=== PATIENT | female | born 1975 | race Caucasian/White ===

== ENCOUNTER 2016-06-05 13:09 | Emergency (ER) | payer OTHER ==
[2016-06-05 13:09] VITALS: BMI 30.1
[2016-06-05 13:16] VITALS: RESP 18; TEMP 97.9
[2016-06-05] MEDS ORDERED: DiphenhydrAMINE 50 mg/ml Inj IM STA (13:38)
--- NOTE | 2016-06-05 13:45 | C.PDOC ---
History Of Present Illness <Eunice Ndiaye - Last Filed: 06/05/16 13:48> <Chacha Palm - Last Filed: 06/05/16 14:23> 41 year old female presents with complaint of 3 days of rash on her bilateral legs. Patient states that she used a new peppermint body wash on Saturday. On Saturday she started to feel itching on her lower extremities by her lateral hips. There was a papular and erythematous patch of skin that started to spread down her bilateral legs. The patient states that she applied chamomile cream to the area but it has still been spreading. She denies bleeding, drainage, and swelling of skin. Patient denies eating new food, using new laundry detergent, recent exposure to wooded area, bug bites, fever, chills, shortness of breath, difficulty breathing, palpitations, chest pain, nausea, vomiting, and diarrhea. (SenthilMinaEunice) History Per: Patient History/Exam Limitations: no limitations Onset/Duration Of Symptoms: Days Current Symptoms Are (Timing): Worse Location Of Injury: Right: Thigh, Left: Thigh, Anterior: Thigh, Posterior: Thigh Quality Of Symptoms: Itching Severity: Moderate Recent travel outside of the [place]: No <Eunice Ndiaye - Last Filed: 06/05/16 13:48> <NéstorChacha - Last Filed: 06/05/16 14:23> Time Seen by Provider: 06/05/16 13:45 Chief Complaint (Nursing): Abnormal Skin Integrity Past Medical History Family History: States: Unknown Family Hx - Social History Hx Tobacco Use: No Hx Alcohol Use: Yes Hx Substance Use: No - Immunization History Hx Tetanus Toxoid Vaccination: No Hx Influenza Vaccination: No Hx Pneumococcal Vaccination: No <Eunice Ndiaye - Last Filed: 06/05/16 13:48> Vital Signs: Last Vital Signs Temp 97.9 F 06/05/16 13:12 Pulse 63 06/05/16 13:12 Resp 18 06/05/16 13:12 BP 122/85 06/05/16 13:12 Pulse Ox 100 06/05/16 13:54 Review Of Systems Except As Marked, All Systems Reviewed And Found Negative. Cardiovascular: Negative for: Chest Pain, Palpitations Respiratory: Negative for: Cough, Shortness of Breath Skin: Positive for: Rash (bilateral thighs ) Neurological: Negative for: Weakness, Numbness <Eunice Ndiaye - Last Filed: 06/05/16 13:48> Physical Exam - Physical Exam Appears: Well, Non-toxic, No Acute Distress Skin: Warm, Dry, Rash (papular rash bilateral anterior and posterior thighs) Head: Atraumatic, Normacephalic Eye(s): bilateral: Normal Inspection, EOMI Nose: Normal Oral Mucosa: Moist Tongue: Normal Appearing, No Swelling Lips: Normal Appearing, No Swelling Neck: Normal, Normal ROM, Trachea Midline Cardiovascular: Rhythm Regular, No Rhythm Irregular Respiratory: Normal Breath Sounds, No Decreased Breath Sounds, No Accessory Muscle Use, No Stridor, No Wheezing Gastrointestinal/Abdominal: Normal Exam Extremity: Normal ROM Neurological/Psych: Oriented x3, Normal Speech, Normal Cognition <Eunice Ndiaye - Last Filed: 06/05/16 13:48> ED Course And Treatment O2 Sat by Pulse Oximetry: 100 <Eunice Ndiaye - Last Filed: 06/05/16 13:48> Supervising Attending Note <Eunice Ndiaye - Last Filed: 06/05/16 13:48> - Supervising Attending Note Comment: RESIDENT - Attestation: I have personally seen and examined this patient.: Yes I have fully participated in the care of the patient.: Yes I have reviewed all pertinent clinical information, including history, physical exam and plan: Yes <Chacha Palm - Last Filed: 06/05/16 14:23> - Notes: Notes:: NEW ONSET ITCHY RASH B/L LEGS SINCE USING NEW BODYWASH. NO IMPROVE W OTC CALAMINE LOTION. NO OTHER ASSOC SX. EXAM ABOVE (Chacah Palm) Disposition Discussed With : Chacha Palm Doctor Will See Patient In The: Office Counseled Patient/Family Regarding: Diagnosis, Rx Given - Disposition Disposition Time: 13:54 - POA Present On Arrival: None <Eunice Ndiaye - Last Filed: 06/05/16 13:48> Counseled Patient/Family Regarding: Diagnosis, Need For Followup - Disposition Disposition Time: 14:21 <Chacha Palm - Last Filed: 06/05/16 14:23> - Disposition Referrals: [facility] [Outside] [facility] [Outside] Disposition: HOME/ ROUTINE Condition: GOOD Additional Instructions: Follow up with the [facility] within 7 days. Patient should avoid aggravating lotion. The patient should take Benadryl 25mg every 8 hours as needed for symptoms relief. She should apply topical prescription cream to her legs as prescribed. She may return to the ED if she experiences worsening of her symptoms or has other concerns. Prescriptions: Hydrocortisone 1% Cream [Cortizone 1% Cream] 1 gm TP BID #1 tube Dexamethasone 12 mg PO ONCE #2 tab Instructions: Contact Dermatitis (DC) Forms: General Discharge Instructions, Gen Discharge Inst Slovenian - Clinical Impression Clinical Impression: Contact dermatitis
[2016-06-05 14:31] VITALS: BP 110/72; PULSE 68; O2SAT 98
== END 2016-06-05 14:31 | disposition home or self-care (01) ==
LOC: C.ER 13:09
DX: L25.9 Unspecified contact dermatitis, unspecified cause (principal)

== ENCOUNTER 2016-10-09 17:00 | Emergency (ER) | payer OTHER ==
[2016-10-09 17:00] VITALS: BMI 30.1
[2016-10-09 17:08] VITALS: RESP 18; TEMP 98
[2016-10-09] MEDS ORDERED: Aluminum Hydroxide/Magnesium Hydroxide Susp (30 mL) PO STA (18:07)
[2016-10-09] MEDS ORDERED: Belladonna-Phenobarbital PO STA (18:07)
[2016-10-09] MEDS ORDERED: Aluminum Hydroxide/Magnesium Hydroxide Susp (30 mL) ONE (18:12)
[2016-10-09] MEDS ORDERED: Belladonna-Phenobarbital ONE (18:12)
--- NOTE | 2016-10-09 18:30 | C.PDOC ---
History Of Present Illness 41 year old female presents to ED with complaints of epigastric abdominal pain since yesterday which is non-radiating and not relieved by pepto-bismol or mylanta. Patient reports unable to describe pain but has gassy sensation and has been belching. She also reports feeling acidic taste in her mouth. Pain worsens after eating and today ate minimal food, drinking water. She denies any fever, nausea, vomiting, constipation, diarrhea. Time Seen by Provider: 10/09/16 18:00 Chief Complaint (Nursing): Abdominal Pain History Per: Patient History/Exam Limitations: no limitations Onset/Duration Of Symptoms: Days Location Of Pain/Discomfort: Epigastric Radiation Of Pain To:: None Quality Of Discomfort: "Pain" Last Bowel Movement: Today Abnormal Vaginal Bleeding: No Past Medical History Reviewed: Historical Data, Nursing Documentation, Vital Signs Vital Signs: Last Vital Signs Temp 98 F 10/09/16 18:35 Pulse 77 10/09/16 18:35 Resp 18 10/09/16 18:35 BP 116/77 10/09/16 18:35 Pulse Ox 99 10/09/16 18:35 - Medical History PMH: No Chronic Diseases Surgical History: No Surg Hx Family History: States: Unknown Family Hx - Social History Hx Tobacco Use: No Hx Alcohol Use: Yes Hx Substance Use: No - Immunization History Hx Tetanus Toxoid Vaccination: No Hx Influenza Vaccination: No Hx Pneumococcal Vaccination: No Review Of Systems Except As Marked, All Systems Reviewed And Found Negative. Gastrointestinal: Positive for: Abdominal Pain (epigastric) Physical Exam - Physical Exam Appears: Non-toxic, No Acute Distress Skin: Warm, Dry, No Diaphoretic, No Pale, No Rash Head: Atraumatic, Normacephalic Eye(s): bilateral: Normal Inspection, EOMI Neck: Normal ROM Chest: Symmetrical Cardiovascular: Rhythm Regular, No Murmur Respiratory: Normal Breath Sounds, No Wheezing Gastrointestinal/Abdominal: Bowel Sounds (active), Soft, Tenderness (mild epigastric tenderness to palpation), No Distention, No Guarding, No Hernia Back: Normal Inspection, No CVA Tenderness Extremity: Bilateral: Atraumatic, Normal ROM Neurological/Psych: Oriented x3, Normal Speech Gait: Steady ED Course And Treatment O2 Sat by Pulse Oximetry: 97 Medical Decision Making Medical Decision Makin41 year old female with epigastric abdominal pain worse postprandial and symptoms clinically likely GERD or gastritis. Patient treated with GI cocktail. Patient remained well in no acute distress, talking on her phone. Upon reevaluation she reports feeling better and is asking for discharge papers. She was advised on dietary changes to help with symptoms and will prescribe medication to take daily. Disposition Counseled Patient/Family Regarding: Diagnosis, Need For Followup, Rx Given - Disposition Referrals: Saira Walls MD [Staff Provider] - Disposition: HOME/ ROUTINE Disposition Time: 18:28 Condition: IMPROVED Additional Instructions: Vaya a [place] mdico o la clnica en 2-5 douglas sin falta, para mas evaluacin. [place] los medicamentos roman indicado. Volver a la jaison de emergencia en cualquier momento si los sntomas persisten o empeoran. 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
[2016-10-09 19:04] VITALS: BP 116/77; PULSE 77
[2016-10-10 12:37] VITALS: O2SAT 97
== END 2016-10-09 18:35 | disposition home or self-care (01) ==
LOC: C.ER 17:00
DX: K29.70 Gastritis, unspecified, without bleeding (principal)

== ENCOUNTER 2017-03-19 08:19 | Emergency (ER) | payer OTHER ==
[2017-03-19 08:30] VITALS: BMI 29.2
--- NOTE | 2017-03-19 10:02 | C.PDOC ---
History Of Present Illness Lizeth Doe is a 41 year old female, with no past medical history, who presents to the emergency department complaining of cough, runny nose, sore throat, generalized body aches, and headache onset for 4-5 days. Patient also reports feeling intermittently cold and hot. She denies any nausea, vomit, neck pain, dysuria, abdominal pain or constipation. No further medical complaints. PMD: Saira Walls Time Seen by Provider: 03/19/17 09:16 Chief Complaint (Nursing): Flu-like Symptoms History Per: Patient History/Exam Limitations: no limitations Onset/Duration Of Symptoms: Days (x4-5) Current Symptoms Are (Timing): Still Present Location Of Pain: Throat, Headache Associated Symptoms: Sore Throat, Cough, Nasal Congestion, Other (generalized body aches, headache). denies: Neck Pain, Nausea, Vomiting Ear Symptoms: Bilateral: None Past Medical History Reviewed: Historical Data, Nursing Documentation, Vital Signs Vital Signs: Last Vital Signs Temp 97.7 F 03/19/17 10:36 Pulse 80 03/19/17 10:36 Resp 16 03/19/17 10:36 BP 111/74 03/19/17 10:36 Pulse Ox 99 03/19/17 10:58 - Medical History PMH: No Chronic Diseases Surgical History: No Surg Hx Family History: States: Unknown Family Hx - Social History Hx Tobacco Use: No Hx Alcohol Use: Yes Hx Substance Use: No - Immunization History Hx Tetanus Toxoid Vaccination: No Hx Influenza Vaccination: No Hx Pneumococcal Vaccination: No Review Of Systems Except As Marked, All Systems Reviewed And Found Negative. Constitutional: Positive for: Other (generalized body aches) ENT: Positive for: Nose Discharge, Throat Pain Respiratory: Positive for: Cough Gastrointestinal: Negative for: Nausea, Vomiting, Abdominal Pain, Constipation Genitourinary: Negative for: Dysuria Musculoskeletal: Negative for: Neck Pain Neurological: Positive for: Headache Physical Exam - Physical Exam Appears: Other (appears ill, flushed ) Skin: Normal Color, Warm, Dry Head: Atraumatic Eye(s): bilateral: Other (slight conjunctival injection) Ear(s): Bilateral: Normal Nose: Normal Throat: Erythema (mild) Neck: Normal ROM, Supple Cardiovascular: Rhythm Regular, No Murmur Respiratory: Normal Breath Sounds, No Accessory Muscle Use Gastrointestinal/Abdominal: Soft, No Tenderness Extremity: Normal ROM, No Deformity, No Swelling Neurological/Psych: Oriented x3 ED Course And Treatment O2 Sat by Pulse Oximetry: 99 (RA) Pulse Ox Interpretation: Normal Medical Decision Making Medical Decision Making: Initial Impression: Influenza Initial plan: Tylenol 975 mg PO Motrin tab 600 mg PO Throat culture reevaluation --Tamiflu not given since pt is several days into illness 10:25 --Patient feels better, afebrile and she was referred to the clinic to follow up. Disposition Counseled Patient/Family Regarding: Diagnosis, Need For Followup, Rx Given - Disposition Referrals: [facility] [Outside] Disposition: HOME/ ROUTINE Disposition Time: 10:28 Condition: STABLE Prescriptions: Ibuprofen [Motrin] 1 tab PO TID PRN #30 tab PRN Reason: Pain Instructions: Viral Syndrome (ED) Forms: Gen Discharge Inst Czech, [facility] (Czech), Work Excuse - POA Present On Arrival: None - Clinical Impression Clinical Impression: Influenza-like illness - Scribe Statement Sb Schaeffer Provider Attestation: All medical record entries made by the Scribe were at my direction and personally dictated by me. I have reviewed the chart and agree that the record accurately reflects my personal performance of the history, physical exam, medical decision making, and the department course for this patient. I have also personally directed, reviewed, and agree with the discharge instructions and disposition.
[2017-03-19 10:38] VITALS: BP 111/74; PULSE 80; RESP 16; TEMP 97.7
[2017-03-19 10:58] VITALS: O2SAT 99
== END 2017-03-19 10:39 | disposition home or self-care (01) ==
LOC: C.ER 08:19
DX: J11.1 Influenza due to unidentified influenza virus with other respiratory manifestations (principal)